=== PATIENT | female | born 1975 | race African-American/Black ===

== ENCOUNTER 2018-01-14 14:21 | Emergency (ER) | payer OTHER, MEDICAID ==
[~2018-01-14] VITALS: Ht 167.6 cm; Wt 136.4 kg
[~2018-01-14 14:21] MED LIST: HYDR25TA PO; RISP2 PO
[2018-01-14 14:24] VITALS: BP 148/99
== END 2018-01-14 17:11 | disposition left against medical advice (07) ==
LOC: EMS 14:25
DX: M25.532 Pain in left wrist (principal); Z53.21 Procedure and treatment not carried out due to patient leaving prior to being seen by health care provider

== ENCOUNTER 2018-08-19 14:24 | Emergency (ER) | payer MEDICARE, MEDICAID ==
[~2018-08-19] VITALS: Ht 167.6 cm; Wt 150.0 kg
[2018-08-19 20:00] VITALS: BP 116/84
== END 2018-08-19 21:31 | disposition home or self-care (01) ==
LOC: EMS 14:26
DX: F20.9 Schizophrenia, unspecified (principal); I10 Essential (primary) hypertension; F17.210 Nicotine dependence, cigarettes, uncomplicated; Z88.0 Allergy status to penicillin